=== PATIENT | male | born 1960 | race Caucasian/White ===

== ENCOUNTER → 2018-12-06 | Outpatient (CLI) | payer BC, SELFPAY ==
--- NOTE | 2018-12-06 17:12 | MRI_ITS ---
HISTORY:rt hip pain x 1 year MRI EXAMINATION OF [facility]ERight HIP COMPARISON: None TECHNIQUE: Large wlada-xy-zuur coronal T1 and STIR and axial STIR and small ttoij-gj-xjvy fat-suppressed T2 and proton density axial images of the right hip and small fgtjb-nw-rzoc fat-suppressed proton-density sagittal images of the right hip # of images including paperwork:[id number] FINDINGS: Evaluation is limited particularly in the small ggkre-au-qemf images by ring artifact. Also mildly limited by motion Bones: There is edema that is seen within the right femoral head extending to the femoral neck and intertrochanteric region. There is no evidence of articular collapse. There is a focal area of linear low density seen on coronal image 15 series 4 that does extend to the cortex. I suspect this represents a 5 cm scar however. Small collar osteophytes. There are degenerative changes seen within the lumbar spine with decreased disc space from L3-4 through L5-S1. Sacroiliac joints are unremarkable Musculotendinous structures: Probable insertional tendinosis involving the gluteus violetta on the left with surrounding bursitis. There is minimal edema seen within the distal iliopsoas muscle proximal to the insertion on the lesser trochanter on the right. Intrapelvic contents: Intrapelvic contents are normal in appearance without mass lesion or other abnormality. Hip joint and bursae: There is a right-sided hip joint effusion. Superolateral joint space narrowing of the right hip. There is minimal subchondral edema seen at the right acetabulum.. As stated there is edema seen within the femoral head extending to the neck. I suspect this is secondary to an insufficiency fracture best seen on image 16 series 4 Neurovascular structures: No intrinsic or extrinsic mass along the course of the sciatic or femoral nerve is identified. No arterial aneurysm is identified. MRI/Lower Ext Joint Only (Routine) IMPRESSION: Marrow edema is seen within the femoral head extending from the articular surface to the intertrochanteric region. Subtle areas of heterogenous low signal are seen within the head as discussed. This may represent an insufficiency fracture however there is also mild edema seen within the acetabulum on the right. There is joint space narrowing with osteoarthritis noted. I do not see cortical collapse on this study. Right-sided joint effusion Insertional tendinosis and bursal fluid collection involving the left would use medius tendon Mild edema of the right iliopsoas muscle just proximal to the insertion on the lesser trochanter. at 1932 Reported and signed by: Lili German DO Electronically Signed: Lili German DO at 19:31 EDT Tel , Service support ,
== END | disposition home or self-care (01) ==
LOC: MRI 16:56
PROVIDERS: Family Provider Internal Medicine; PCP Internal Medicine
DX: M25.551 Pain in right hip (principal)
CPT/HCPCS: 73721